=== PATIENT | female | born 1990 | race Hispanic/Latino ===

== ENCOUNTER 2017-06-16 15:36 | Emergency (ER) | payer SELFPAY ==
--- NOTE | 2017-06-16 20:52 | Emergency Department Report ---
HPI - General Chief Complaint: Upper Respiratory Infection Time Seen by Provider: 06/16/17 20:31 - HPI HPI: Patient is a 27-year-old female with no medical history presented to ED complaining of greenish productive cough for the past 8 days. Patient states the first couple of days she had a fever the fevers resolved. Patient states she has had no seat contacts and no allergies. Patient denies any medication use. She denies chills/headaches/dizziness/nausea/vomiting/abdominal pain. ED Past Medical Hx - Surgical History Hx Cholecystectomy: Yes - Social History Smoking Status: Current Every Day Smoker Substance Use Type: Cocaine - Medications Home Medications: Home Medications Medication Instructions Recorded Confirmed Last Taken Type Acetamin/Codeine 120-12Mg/5 ml 5 ml PO TID PRN #60 ml 06/16/17 Unknown Rx [Tylenol/Codeine] Azithromycin [Zithromax TAB] 250 mg PO DAILY #5 tablet 06/16/17 Unknown Rx Pseudoephedrine HCl 120 mg PO DAILY #20 tablet.er 06/16/17 Unknown Rx [Pseudoephedrine ER] ED Review of Systems ROS: Stated complaint: COUGH Other details as noted in HPI Constitutional: denies: chills, fever Eyes: denies: eye pain, eye discharge, vision change ENT: denies: ear pain, throat pain Respiratory: cough. denies: shortness of breath, wheezing Cardiovascular: denies: chest pain, palpitations Endocrine: no symptoms reported Gastrointestinal: denies: abdominal pain, nausea, diarrhea Genitourinary: denies: urgency, dysuria, discharge Musculoskeletal: denies: back pain, joint swelling, arthralgia Skin: denies: rash, lesions Neurological: denies: headache, weakness, paresthesias Psychiatric: denies: anxiety, depression Hematological/Lymphatic: denies: easy bleeding, easy bruising Physical Exam - Physical Exam Vital Signs: Vital Signs 06/16/17 15:42 Temperature 98.1 F Pulse Rate 98 H Respiratory 18 Rate Blood Pressure 133/91 O2 Sat by Pulse 98 Oximetry Physical Exam: GENERAL: Alert and oriented x3, no apparent distress, Normal Gait, atraumatic. HEAD: Head is normocephalic and a-traumatic. EYES: Extra ocular muscles are intact. Pupils are equal, round, and reactive to light and accommodation. EARS: symetrical, atraumatic, non tender, ear canal clear and moderate cerumen, serous fluid behind tympanic membrance laterally, non inflamed. gross auditory nml bilaterally. NOSE: Nose symetrical, Nontender,Nares appeared normal. MOUTH:Mouth is well hydrated and without lesions. Tonsils nonerythematous or swollen, Uvula midline, Tongue not elevated. Mucous membranes are moist. Posterior pharynx clear, no exudate or lesions. Patent airways. NECK: Supple. Non edematous, No carotid bruits. No lymphadenopathy or thyromegaly. No C-spine tenderness LUNGS: Symetrical with respiration, No wheezing, no rales or crackles, CTAB. HEART: S1, S2 present, regular rate and rhythm without murmur, no rubs, no gallops. Non tender to palpation SKIN: Warm and dry, No lesions, No ulceration or induration present. ED Course Vital Signs 06/16/17 15:42 Temperature 98.1 F Pulse Rate 98 H Respiratory 18 Rate Blood Pressure 133/91 O2 Sat by Pulse 98 Oximetry ED Medical Decision Making - Medical Decision Making 37-year-old female presents with upper respiratory infection with sinusitis ED course: Patient received Robitussin and azithromycin and ED Discussed the patient to take medication as prescribed. Discussed to rest drink plenty of fluids and take her vitamins. Discussed follow-up with primary care physician in 3-5 days. Patient is in no acute or respiratory distress. Vital signs are normal. Critical care attestation.: If time is entered above; I have spent that time in minutes in the direct care of this critically ill patient, excluding procedure time. ED Disposition Clinical Impression: URI (upper respiratory infection) Qualifiers: URI type: unspecified URI Qualified Code(s): J06.9 - Acute upper respiratory infection, unspecified Disposition: TO HOME OR SELFCARE Is pt being admited?: No Does the pt Need Aspirin: No Condition: Stable Instructions: Sinusitis (ED), Upper Respiratory Infection (ED) Prescriptions: Acetamin/Codeine 120-12Mg/5 ml [Tylenol/Codeine] 5 ml PO TID PRN #60 ml PRN Reason: Pain Azithromycin [Zithromax TAB] 250 mg PO DAILY #5 tablet Pseudoephedrine HCl [Pseudoephedrine ER] 120 mg PO DAILY #20 tablet.er Referrals: PRIMARY CARE, [Primary Care Provider] - 3-5 Days [facility] [Outside] - 3-5 Days [facility] [Outside] - 3-5 Days Forms: Work/School Release Form(ED) Time of Disposition: 21:27
[2017-06-16] MEDS: ZITHROMAX PO ONE (21:00)
[2017-06-16] MEDS: ROBITUSSIN PO ONE (21:00)
[2017-06-17 01:32] VITALS: BP 130/97
== END 2017-06-16 21:40 | disposition home or self-care (01) ==
LOC: ED 15:36
DX: J06.9 Acute upper respiratory infection, unspecified (principal); F17.200 Nicotine dependence, unspecified, uncomplicated; Z90.49 Acquired absence of other specified parts of digestive tract
CPT/HCPCS: 99282